=== PATIENT | female | born 1985 | race Caucasian/White ===

== ENCOUNTER → 2021-01-19 | Outpatient (CLI) | payer OTHER ==
--- NOTE | 2021-01-19 17:13 | REP ---
INDICATION: BONE LESION. COMPARISON: None. TECHNIQUE/RADIOTRACER AND DOSE: Following the intravenous administration of 21.9 mCi technetium 99 M MDP, patient's whole-body is imaged in multiple projections. FINDINGS: There is homogeneous radiotracer distribution throughout the axial and appendicular skeleton. There is no scintigraphic evidence of suspicious osseous lesion. Renal and bladder activity are seen. Mild gastric activity is present as the patient just ate a meal. IMPRESSION: No compelling scintigraphic evidence of suspicious osseous lesion. <Electronically signed by Shukri Montoya > 01/19/21 [id number]
== END ==
LOC: M RAD 11:07
PROVIDERS: ATTEND Orthopaedic Surgery
DX: M89.9 Disorder of bone, unspecified (principal)
CPT/HCPCS: 78306; A9503